=== PATIENT | female | born 1970 | race Hispanic/Latino ===

== ENCOUNTER 2020-01-03 17:34 | Inpatient (IN) | payer BC, OTHER ==
[~2020-01-03] VITALS: Ht 154.9 cm; Wt 70.9 kg
[2020-01-03] MEDS ORDERED: SODIUM CHLORIDE 0.9% 1000ML 1,000 ML IV ONE ×3 (19:16→22:27)
[2020-01-03 19:22] LABS: HEMATOCRIT 46.2 % (36-48); LYMPHOCYTES % (AUTO) 26.6 % (21.0-51.0); MEAN CORPUSCULAR HEMOGLOBIN 31.1 pg (27.0-33.0); MEAN CORPUSCULAR HGB CONC 32.9 g/dL (32.0-36.0); MEAN CORPUSCULAR VOLUME 94.5 fL (79-99); NEUTROPHILS % (AUTO) 67.7 % (40.0-77.0); PLATELET COUNT (AUTO) 306 K/uL (130-400); RED BLOOD CELL COUNT(AUTO) 4.89 MIL/uL (4.00-5.50); RED CELL DISTRIBUTION WIDTH 11.9 % (11.0-15.5); WHITE BLOOD COUNT (AUTO) 13.8 K/uL (4.8-10.8)
[2020-01-03 19:23] LABS: BASOPHILS % (AUTO) 0.5 % (0.0-5.0); EOSINOPHILS % (AUTO) 0.8 % (0.0-8.0)
[2020-01-03 19:31] LABS: ALBUMIN 4.4 g/dL (3.5-5.0); BILIRUBIN,TOTAL 0.5 mg/dL (0.2-1.0); CREATININE 1.3 mg/dL (0.5-1.5); POTASSIUM 3.9 mmol/L (3.5-5.1)
[2020-01-03] MEDS ORDERED: INSULIN HUMULIN R 100 UNIT/ML 3ML ONE (21:01)
[2020-01-03 22:19] LABS: APPEARANCE,URINE Clear (CLEAR); BILIRUBIN,URINE Negative (NEGATIVE); COLOR,URINE Yellow (YELLOW); GLUCOSE, URINE (UA) >=1000 mg/dL (NEGATIVE); KETONES,URINE Trace mg/dL (NEGATIVE); LEUKOCYTE ESTERASE ,URINE Negative (NEGATIVE); NITRATE,URINE Negative (NEGATIVE); OCCULT BLOOD,URINE Negative (NEGATIVE); PH,URINE 5.5 (5.0-8.0); PROTEIN,URINE Negative (NEGATIVE)
[2020-01-03 22:21] LABS: HCG,QUAL RESULT NEGATIVE (NEGATIVE)
[2020-01-03 22:28] LABS: BACTERIA,URINE Few /HPF (None Seen)
[2020-01-03 22:29] LABS: MUCUS,URINE Few LPF (None Seen)
[2020-01-04] MEDS: SODIUM CHLORIDE 0.9% 1000ML 1,000 ML IV SCH ×3 (01:21→21:52)
[2020-01-04] MEDS ORDERED: ACETAMINOPHEN 325 MG TAB PO PRN ×2 (01:30)
[2020-01-04] MEDS ORDERED: DIPHENHYDRAMINE HCL 25 MG CAPSULE PO PRN (01:30)
[2020-01-04] MEDS ORDERED: SODIUM CHLORIDE 0.9% 1000ML 1,000 ML IV SCH (01:30)
[2020-01-04] MEDS ORDERED: NITROGLYCERIN 0.4 MG SL TAB SL PRN (01:30)
[2020-01-04] MEDS ORDERED: ONDANSETRON HCL 4 MG/2 ML VIAL IV PRN (01:30)
[2020-01-04] MEDS ORDERED: GLUCAGON 1MG KIT 1 MG ML IM PRN (01:45)
[2020-01-04] MEDS ORDERED: DEXTROSE 50%-WATER 50 ML DISP.SYRIN IV PRN (01:45)
[2020-01-04 01:56] LABS: LIPASE 324 U/L (114-286)
[2020-01-04 02:01] LABS: ACETONE,BLOOD NEGATIVE (NEGATIVE)
[2020-01-04 02:29] LABS: ABG OXYGEN SATURATION 69.7 % (95.0-99.0); BASE EXCESS,VENOUS BLOOD GAS -1.7 (-2.0-3.0); HCO3,VENOUS BLOOD GAS 24.6 (21.0-28.0); PCO2,VENOUS BLOOD GAS 47 (32-45); PH,VENOUS BLOOD GAS 7.335 (7.350-7.450)
[2020-01-04 02:38] LABS: HEMOGLOBIN A1C 9.4 % (4.0-6.0)
[2020-01-04 03:00] LABS: CREATININE 0.8 mg/dL (0.5-1.5); POTASSIUM 3.6 mmol/L (3.5-5.1)
[2020-01-04] MEDS ORDERED: SODIUM CHLORIDE 0.9% 1000ML 1,000 ML IV ONE (03:01)
[2020-01-04 03:10] VITALS: BP 139/78
[2020-01-04] MEDS: INSULIN HUMULIN R 100 UNIT/ML 3ML SQ SCH ×5 (07:09→21:46)
[2020-01-04 07:21] LABS: HEMATOCRIT 40.2 % (36-48); MEAN CORPUSCULAR HEMOGLOBIN 31.2 pg (27.0-33.0); MEAN CORPUSCULAR HGB CONC 33.8 g/dL (32.0-36.0); MEAN CORPUSCULAR VOLUME 92.2 fL (79-99); PLATELET COUNT (AUTO) 254 K/uL (130-400); RED BLOOD CELL COUNT(AUTO) 4.36 MIL/uL (4.00-5.50); RED CELL DISTRIBUTION WIDTH 11.9 % (11.0-15.5); WHITE BLOOD COUNT (AUTO) 13.8 K/uL (4.8-10.8)
[2020-01-04 07:43] LABS: ALBUMIN 3.5 g/dL (3.5-5.0); BILIRUBIN,TOTAL 0.3 mg/dL (0.2-1.0); CREATININE 0.8 mg/dL (0.5-1.5); POTASSIUM 3.5 mmol/L (3.5-5.1); TOTAL PROTEIN, SERUM 7.3 g/dL (6.0-8.3)
[2020-01-04 07:52] LABS: EOSINOPHILS % (MANUAL) 3 % (1-6); LYMPHOCYTES % (MANUAL) 46 % (22-44); MAN.DIFF COMMENT-IMPRESSION MANUAL DIFFERENTIAL; MONOCYTES % (MANUAL) 4 % (2-9); PLATELET MORPHOLOGY COMMENT ADEQUATE; SEGMENTED NEUTROPHILS % 47 % (40-70)
[2020-01-04 08:00] VITALS: BP 142/84
[2020-01-04] MEDS: ENOXAPARIN SODIUM 30 MG/0.3 ML SQ SCH (08:33)
[2020-01-04] MEDS: FAMOTIDINE/PF 20 MG/2 ML VIAL IV SCH ×2 (09:00→21:52)
[2020-01-04 12:00] VITALS: BP 132/87
[2020-01-04 16:00] VITALS: BP 135/83
--- NOTE | 2020-01-04 16:22 | NUR ---
D/C PLAN CM spoke to pt regarding d/c planning. Pt is ind. with ADL's. States spouse is working in [employer] and she lives with children. Pt reports she follow up [facility] [place]. Plan is to home. CM to f/u. Addendum: 01/04/20 at 1624 by DEBRA FRIEND CM Amended: Links added.
[2020-01-04 21:13] VITALS: BP 141/83
[2020-01-04 23:59] VITALS: BP 143/79
[2020-01-05] MEDS: SODIUM CHLORIDE 0.9% 1000ML 1,000 ML IV SCH ×3 (01:29→17:21)
[2020-01-05] MEDS: CEFTRIAXONE SODIUM 1 GM IVP SCH ×2 (01:47→13:09)
[2020-01-05] MEDS: INSULIN HUMULIN R 100 UNIT/ML 3ML SQ SCH ×5 (01:50→17:23)
[2020-01-05 03:55] VITALS: BP 140/82
[2020-01-05 07:30] VITALS: BP 137/79
[2020-01-05] MEDS: FAMOTIDINE/PF 20 MG/2 ML VIAL IV SCH (10:08)
[2020-01-05] MEDS: ENOXAPARIN SODIUM 30 MG/0.3 ML SQ SCH (10:11)
[2020-01-05 11:00] VITALS: BP 146/81
--- NOTE | 2020-01-05 12:18 | NUR ---
INITIAL MET W PATIENT FOR DISCHARGE PLANNING. PATIENT LIVES W 3 THREE CHILDREN AND SPOUSE WHO WORKS OUT OF TOWN- PT IS INDEPENDENT, DRIVES, HAS NO DME, AND HAS A NEW DIABETES DIAGNOSIS. DISCUSSED DC NEEDS- STATES WILL GET A BLOOD GLUCOSE MACHINE. DISCUSSED [facility], WILL PROVIDE INFO TO PATIENT, DCP IS HOME, SPOUSE TO PROVIDE TRANSPORT Addendum: 01/05/20 at 1222 by BRIAN MIGUEL RN CM Amended: Links added.
[2020-01-05 16:00] VITALS: BP 151/86
--- NOTE | 2020-01-05 18:13 | NUR ---
Diabetic education provided on correct glucometer checks, hand hygiene, importance of choosing diabetic friendly foods and being compliant with her medications. Prescriptions reviewed and patient stated she would follow up with Dr. Winston for care of her diabetes. Notified patient to keep diary of glucose checks and meals to be reviewed with Dr. Winston. Patient and daughter verbalized understanding. PIV to RA removed, bleeding controlled and dressing applied. Patient ambulated with daughter and aid to emergency entrance.
== END 2020-01-05 18:35 | disposition home or self-care (01) | DRG 638 ==
LOC: EDH 17:34 → EDHIP 01-04 → 4CH 01-04 02:36
PROVIDERS: ADMIT Internal Medicine; ATTEND Internal Medicine
DX: E11.00 Type 2 diabetes mellitus with hyperosmolarity without nonketotic hyperglycemic-hyperosmolar coma (NKHHC) (principal); E87.1 Hypo-osmolality and hyponatremia; E78.5 Hyperlipidemia, unspecified; I10 Essential (primary) hypertension; R79.89 Other specified abnormal findings of blood chemistry; E11.65 Type 2 diabetes mellitus with hyperglycemia; Z79.84 Long term (current) use of oral hypoglycemic drugs; Z82.49 Family history of ischemic heart disease and other diseases of the circulatory system
CPT/HCPCS: 36415; 36600; 80048; 80053; 80061; 81001; 81025; 82009; 82803; 82948; 83036; 83690; 83735; 85025; 87088; 93005; G0378; J0696; J1650; J1815; J3490; J7030